=== PATIENT | male | born 1990 | race African-American/Black ===

== ENCOUNTER 2019-03-24 11:18 | Emergency (ER) | payer OTHER ==
[~2019-03-24] VITALS: Ht 188 cm; Wt 90.7 kg
[2019-03-24] MEDS ORDERED: VENTOLIN HFA 1818 GM INH (12:06)
[2019-03-24] MEDS ORDERED: CLARITIN10 MG PO (12:06)
[2019-03-24 12:15] VITALS: BP 115/74
== END 2019-03-24 12:15 | disposition home or self-care (01) ==
LOC: ER 11:18
DX: J45.909 Unspecified asthma, uncomplicated (principal); J32.2 Chronic ethmoidal sinusitis; J32.0 Chronic maxillary sinusitis; F17.210 Nicotine dependence, cigarettes, uncomplicated

== ENCOUNTER 2019-10-01 09:30 | Emergency (ER) | payer OTHER ==
[~2019-10-01] VITALS: Ht 188 cm; Wt 90.7 kg
[~2019-10-01 09:30] MED LIST: CLARITIN10 MG PO; VENTOLIN HFA 1818 GM INH
[2019-10-01 11:27] LABS: HEMATOCRIT 45.7 % (42.0-52.0); HEMOGLOBIN 14.4 gm/dL (14.0-18.0); MCH 22.8 pg (26.0-34.0); MCHC 31.6 g/dL (28.0-37.0); MCV 72.3 fL (80.0-100.0); PLATELET COUNT 133 thou/uL (150-400); RBC 6.32 mil/uL (4.50-6.00); RDW 14.7 % (10.5-14.5); WBC 3.5 thou/uL (4.0-11.0)
[2019-10-01 11:40] LABS: URINE BILIRUBIN NEGATIVE (Negative); URINE BLOOD NEGATIVE (Negative); URINE CLARITY CLEAR; URINE COLOR YELLOW; URINE GLUCOSE-RANDOM* NEGATIVE (Negative); URINE KETONES NEGATIVE (Negative); URINE LEUKOCYTES-REFLEX NEGATIVE (Negative); URINE NITRITE-REFLEX NEGATIVE (Negative); URINE PROTEIN (DIPSTICK) TRACE (Negative); URINE UROBILINOGEN 0.2 E.U./dl (0.2-1.0)
[2019-10-01 11:42] LABS: ANION GAP 12 mmol/L (7-16); BUN 12 mg/dL (7-18); CALCIUM 9.3 mg/dL (8.5-10.1); CHLORIDE 107 mmol/L (98-107); CO2 23 mmol/L (21-32); CREATININE 0.9 mg/dL (0.7-1.3); GLUCOSE 97 mg/dL (74-106); POTASSIUM 4.2 mmol/L (3.5-5.1); SODIUM 142 mmol/L (136-145)
[2019-10-01 11:51] LABS: ALBUMIN 3.7 g/dL (3.4-5.0); LIPASE 135 U/L (73-393); MAGNESIUM 1.7 mg/dL (1.8-2.4); SGOT 29 U/L (15-37); SGPT 32 U/L (30-65); TOTAL BILIRUBIN 0.2 mg/dL (<0.1-1.0); TOTAL PROTEIN 7.2 g/dL (6.4-8.2); TROPONIN-I <0.06 ng/mL (<0.06)
[2019-10-01 12:03] LABS: ABSOLUTE NEUTROPHILS 0.9 thou/uL (1.4-8.2)
[2019-10-01 12:04] LABS: ATYPICAL LYMPHS 4 %
[2019-10-01 12:05] LABS: ANISOCYTOSIS 1+; MICROCYTES 1+
[2019-10-01] MEDS ORDERED: PREDNISONE 10 M10 MG PO (12:57)
[2019-10-01] MEDS ORDERED: BENTYL 20 MG TA20 M1 PO (12:57)
[2019-10-01] MEDS ORDERED: TESSALON PERLE100 M1 PO (12:57)
[2019-10-01] MEDS ORDERED: ZOFRAN ODT4 MG PO (12:57)
[2019-10-01] MEDS ORDERED: PROAIR HFA8.5 GM INH (12:57)
[2019-10-01 13:02] VITALS: BP 112/65
--- NOTE | 2019-10-01 15:05 | EKG ---
[place] [address] [facility] [employer] [place] [address] ELECTROCARDIOGRAM REPORT Name: ESTRELLITA LIZ Room #: DEP SHAHNAZ Luther#: [id number] Admission: 10/01/19 Attend Phys: Discharge: 10/01/19 Date of : [birth year] Report #: [id number] THIS REPORT FOR: //name// [facility] ED Test Date: 2019-10-01 Test Time: 11:16:07 Pat Name: ESTRELLITA LIZ Department: Room: Gender: Critical Care Registered Nurse: RAYA : 1990 Requested By: Luciana Salgado Order Number: [id number] MD: Liborio Middleton Measurements Intervals [place] Rate: 58 P: 18 TN: 192 QRS: 54 QRSD: 89 T: 37 QT: 381 QTc: 375 Interpretive Statements Sinus rhythm Anteroseptal infarct, age indeterminate Lateral leads are also involved No previous ECG available for comparison Electronically Signed On 10-01-2019 15:05:30 DOPE WEIGH OPERATOR by Liborio Middleton [email or web address] <ELECTRONICALLY SIGNED> By: Liborio Middleton MD 10/01/19 1505 1116 1116 MD BRITTNEY Tinooc
== END 2019-10-01 13:35 | disposition home or self-care (01) ==
LOC: ER 09:30
PROVIDERS: Physician Assistant
DX: I88.0 Nonspecific mesenteric lymphadenitis (principal); E86.0 Dehydration; J40 Bronchitis, not specified as acute or chronic; F17.210 Nicotine dependence, cigarettes, uncomplicated

== ENCOUNTER 2020-12-06 13:13 | Emergency (ER) | payer OTHER ==
[~2020-12-06] VITALS: Ht 188 cm; Wt 79.4 kg
[~2020-12-06 13:13] MED LIST changes: +BENTYL 20 MG TA20 M1 PO; +PREDNISONE 10 M10 MG PO; +PROAIR HFA8.5 GM INH; +TESSALON PERLE100 M1 PO; +ZOFRAN ODT4 MG PO
[2020-12-06 13:52] LABS: ABSOLUTE NEUTROPHILS 1.7 thou/uL (1.4-8.2); BASOPHILS 0.7 % (0.0-2.0); EOSINOPHILS 4.3 % (0.0-3.0); HEMATOCRIT 46.7 % (42.0-52.0); HEMOGLOBIN 14.9 gm/dL (14.0-18.0); LYMPHOCYTES 41.7 % (24.0-44.0); MCH 23.3 pg (26.0-34.0); MCV 72.8 fL (80.0-100.0); MONOCYTES 12.7 % (1.0-8.0); PLATELET COUNT 169 thou/uL (150-400); POLYS 40.6 % (36.0-66.0); RBC 6.42 mil/uL (4.50-6.00); RDW 15.3 % (10.5-14.5); WBC 4.1 thou/uL (4.0-11.0)
[2020-12-06 14:02] LABS: ANION GAP 7 mmol/L (7-16); BUN 18 mg/dL (7-18); CALCIUM 9.4 mg/dL (8.5-10.1); CHLORIDE 103 mmol/L (98-107); CO2 26 mmol/L (21-32); CREATININE 1.2 mg/dL (0.7-1.3); GLUCOSE 93 mg/dL (74-106); POTASSIUM 4.1 mmol/L (3.5-5.1); SODIUM 136 mmol/L (136-145)
[2020-12-06 14:13] LABS: SGOT 17 U/L (15-37); SGPT 22 U/L (30-65); TOTAL BILIRUBIN 0.5 mg/dL (0.2-1.0); TOTAL PROTEIN 7.1 g/dL (6.4-8.2); TROPONIN-I <0.06 ng/mL (<0.06)
[2020-12-06] MEDS ORDERED: ZANAFLEX4 MG PO (15:31)
[2020-12-06] MEDS ORDERED: IBUPROFEN 600600 M1 PO (15:31)
[2020-12-06 15:40] LABS: ANISOCYTOSIS 1+; PLATELET ESTIMATE NORMAL
[2020-12-06 15:41] VITALS: BP 104/68
--- NOTE | 2020-12-06 17:44 | EKG ---
[place] [address] [facility] [place] [address] ELECTROCARDIOGRAM REPORT Name: ESTRELLITA LIZ Room #: DEP SHAHNAZ Luther#: [id number] Admission: 12/06/20 Attend Phys: Discharge: 12/06/20 Date of : [birth year] Report #: [id number] [facility] ED Test Date: 2020-12-06 Test Time: 14:03:31 Pat Name: ESTRELLITA LIZ Department: Room: Gender: M Pick[employer] Solution Maker: enedina : 1990 Requested By: June Murphy Order Number: [id number] MD: Liborio Middleton Measurements Intervals [place] Rate: 63 P: 55 MI: 173 QRS: 56 QRSD: 93 T: 44 QT: 374 QTc: 383 Interpretive Statements Sinus rhythm ST elev, probable normal early repol pattern Compared to ECG 10/01/2019 11:16:07 ST (T wave) deviation now present Myocardial infarct finding no longer present Electronically Signed On 12-06-2020 17:44:17 MATHEMATICS LECTURER by Liborio Middleton [email or web address] <ELECTRONICALLY SIGNED> By: Liborio Middleton MD 12/06/20 1744 140 02 Liborio Middleton MD /MAURO
== END 2020-12-06 15:41 | disposition home or self-care (01) ==
LOC: ER 13:13
PROVIDERS: Nurse Practitioner Family
DX: R07.89 Other chest pain (principal); J45.909 Unspecified asthma, uncomplicated; F17.210 Nicotine dependence, cigarettes, uncomplicated; Z79.899 Other long term (current) drug therapy

== ENCOUNTER 2021-02-06 17:20 | Emergency (ER) | payer OTHER ==
[~2021-02-06] VITALS: Ht 188 cm; Wt 81.7 kg
[~2021-02-06 17:20] MED LIST changes: +IBUPROFEN 600600 M1 PO; +ZANAFLEX4 MG PO
[2021-02-06 18:49] VITALS: BP 107/71
== END 2021-02-06 18:49 | disposition home or self-care (01) ==
LOC: ER 17:20
DX: T78.40XA Allergy, unspecified, initial encounter (principal); J45.909 Unspecified asthma, uncomplicated; F17.210 Nicotine dependence, cigarettes, uncomplicated; Z79.899 Other long term (current) drug therapy; Z91.013 Allergy to seafood; Y92.89 Other specified places as the place of occurrence of the external cause